=== PATIENT | female | born 1970 ===

== ENCOUNTER → 2018-04-18 | Emergency (ER) | payer OTHER ==
[~2018-04-18] VITALS: Ht 165.1 cm; Wt 72.6 kg
== END | disposition home or self-care (01) ==
LOC: ER 09:46
DX: M54.89 Other dorsalgia (principal)

== ENCOUNTER 2018-04-22 04:52 | Emergency (ER) | payer OTHER ==
[~2018-04-22] VITALS: Ht 165.1 cm; Wt 72.6 kg
[2018-04-22] MEDS ORDERED: CLONAZEPAM0.5 M1 (05:04)
== END 2018-04-22 10:04 | disposition home or self-care (01) ==
LOC: ER 04:52
DX: M54.89 Other dorsalgia (principal)